=== PATIENT | male | born 2000 | race African-American/Black ===

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

== ENCOUNTER 2022-03-05 18:17 | Emergency (ER) | payer OTHER, SELFPAY ==
[2022-03-05 18:28] VITALS: BP 132/67; PULSE 84; RESP 16; TEMP 36.7; O2SAT 100
--- NOTE | 2022-03-05 18:31 | ED.WOUNDLAC ---
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 Patient reports that he has not been able to get bleeding stopped he states and has applied pressure dressing.Patient has 1cm linear laceration puncture type of wound to left lower leg where he cut it with tip of wire bound box machine helper knife. Patient reports that his tetanus shot is up to date. Onset (ago): hour(s) (within past 2 hours.) Location: other (left lower leg) Patient tetanus UTD: Yes Treatments prior to arrival: bandage (pressure) Related Data Allergies Allergy/AdvReac Type Severity Reaction Status Date / Time No Known Allergies Allergy Mild Verified 03/05/22 18:19 Review of Systems Review of Systems: CONSTITUTIONAL: Denies fever, chills, or sweats. EYES: Denies visual changes, redness, or discharge. ENT: Denies rhinorrhea, congestion, sore throat, or otalgia. CARDIOVASCULAR: Denies chest pain, palpitations, or edema. RESPIRATORY: Denies cough or dyspnea. GASTROINTESTINAL: Denies abdominal pain, nausea, vomiting, or diarrhea. GENITOURINARY: Denies dysuria or hematuria. SKIN: Denies rash or itching.laceration to left lower leg with active bleeding noted. MUSCULOSKELETAL: Denies back pain, joint pain, or myalgia. NEUROLOGIC: Denies headache, numbness, or weakness. PSYCHIATRIC: Denies anxiety or depression. All systems reviewed & are unremarkable except as noted in HPI and below PMFSH Past Medical History Medical History (Updated 03/06/22 @ 00:00 by Background Daemericka) Foot fracture, right Strep pharyngitis Surgical History Surgical History (Updated 04/14/20 @ 09:07 by Cassidy Lisa NP) No history of previous surgery Social History Social History (Updated 03/06/22 @ 11:17 by Cassidy Lisa NP) Smoking status: Never smoker Alcohol intake: never Substance use type: marijuana Living arrangements: with family Gender identity (if verbalized by the patient): Male Comments At time of signature, agree with nursing past medical, surgical, social and family history. There is no relevant family history pertinent to the presenting complaint Exam Narrative: GENERAL: Well-appearing, well-nourished, and in no acute distress. HEAD: Normocephalic, atraumatic. EYES: PERRLA an of ad EOMI. ENT: Nares clear, no rhinorrhea or epistaxis. Mucous membranes moist.TM's normal with good light reflex, throat pink with no tonsil swelling. NECK: Supple.no lymphadenopathy CHEST: Clear to auscultation. No respiratory distress.SAO2 100% on room air HEART: Regular rate and rhythm. No murmur heard. Normal peripheral pulses. ABDOMEN: Soft, nontender, nondistended, normal active bowel sounds. EXTREMITIES: Normal range of motion. No edema. SKIN: Warm, dry, no rash.1cm laceration type puncture wound which occurred when patient was using a wire bound box machine helper to cut a tie off of bed at work today, active bleeding on arrival from wound which was stopped after stapling and application of pressure dressing, see procedure note. NEURO: No focal deficits. Alert and oriented x3. Course Course Level of Care: Express Care Visit Vital Signs Vital signs: Vital Signs Temperature 36.7 C 03/05/22 18:28 Pulse Rate 84 03/05/22 18:28 Respiratory Rate 16 03/05/22 18:28 Blood Pressure 132/67 03/05/22 18:28 Pulse Oximetry 100 03/05/22 18:28 Oxygen Delivery Room Air 03/05/22 18:28 Temperature 36.7 C 03/05/22 18:28 Pulse Rate 84 03/05/22 18:28 Respiratory Rate 16 03/05/22 18:28 Blood Pressure 132/67 03/05/22 18:28 Pulse Oximetry 100 03/05/22 18:28 Oxygen Delivery Room
== END 2022-03-05 18:58 | disposition home or self-care (01) ==
PROVIDERS: Emergency Provider Registered Nurse
DX: S81.812A Laceration without foreign body, left lower leg, initial encounter (principal); W26.8XXA Contact with other sharp object(s), not elsewhere classified, initial encounter
CPT/HCPCS: 12001; 99213; G0463

== ENCOUNTER 2022-07-09 15:13 | Emergency (ER) | payer OTHER, SELFPAY ==
[2022-07-09 15:45] VITALS: BP 124/62; PULSE 81; RESP 18; TEMP 37.4; O2SAT 100
--- NOTE | 2022-07-09 16:04 | ED.GENADULT ---
HPI - General Adult General Chief complaint: Wound/Laceration Stated complaint: Removal Keily Source: patient Mode of arrival: ambulatory Limitations: no limitations History of Present Illness HPI narrative: Patient presents requesting staple removal from the left lower leg. 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 His tetanus was up-to-date at that time. Three keily were placed. Patient tolerated well. He was discharged with Keflex. Denies any fever, chills, nausea, vomiting, purulence from the affected area. Denies any significant pain. No additional complaints or concerns. Related Data Home Medications Medication Instructions Recorded Confirmed No Home Medications 07/09/22 07/09/22 Allergies Allergy/AdvReac Type Severity Reaction Status Date / Time No Known Allergies Allergy Mild Verified 07/09/22 15:22 Review of Systems Review of Systems: CONSTITUTIONAL: Denies fever, chills, or sweats. EYES: Denies visual changes, redness, or discharge. ENT: Denies rhinorrhea, congestion, sore throat, or otalgia. CARDIOVASCULAR: Denies chest pain, palpitations, or edema. RESPIRATORY: Denies cough or dyspnea. GASTROINTESTINAL: Denies abdominal pain, nausea, vomiting, or diarrhea. GENITOURINARY: Denies dysuria or hematuria. SKIN: Reports healed laceration to left lower leg. Denies rash or itching. MUSCULOSKELETAL: Denies back pain, joint pain, or myalgia. NEUROLOGIC: Denies headache, numbness, dizziness, or weakness. PSYCHIATRIC: Denies anxiety or depression. [facility] Past Medical History Medical History Foot fracture, right Strep pharyngitis Surgical History Surgical History No history of previous surgery Family History Family History (Updated 07/09/22 @ 16:07 by CORKY Miller, GRACE) Mother Family history non-contributory Social History Social History Smoking status: Never smoker Alcohol intake: never Substance use type: marijuana Gender identity (if verbalized by the patient): Male Spiritual care concerns: No Exam Narrative: GENERAL: Well-appearing, well-nourished, and in no acute distress. HEAD: Normocephalic, atraumatic. EYES: PERRLA and EOMI. ENT: Nares clear, no rhinorrhea or epistaxis. Mucous membranes moist. Oropharynx without tonsillar hypertrophy exudate or other lesions. Bilateral TMs pearly hinson nonbulging NECK: Supple. No adenopathy or masses. No carotid bruits or JVD CHEST: Clear to auscultation. No respiratory distress. No wheezes rales or rhonchi HEART: Regular rate and rhythm. No murmur heard. Normal peripheral pulses. ABDOMEN: Soft, nontender, nondistended, normal active bowel sounds. EXTREMITIES: Normal range of motion. No edema. SKIN: There is approximately 1.5 cm hyperpigmented scar to the anterior aspect of the left lower leg with three keily intact NEURO: No focal deficits. Alert and oriented x3. PSYCH: Normal mood and affect. Course Course Level of Care: Express Care Visit Vital Signs Vital signs: Vital Signs Temperature 37.4 C 07/09/22 15:45 Pulse Rate 81 07/09/22 15:45 Respiratory Rate 18 07/09/22 15:45 Blood Pressure 124/62 07/09/22 15:45 Pulse Oximetry 100 07/09/22 15:45 Oxygen Delivery Room Air 07/09/22 15:45 Temperature 37.4 C 07/09/22 15:45 Pulse Rate 81 07/09/22 15:45 Respiratory Rate 18 07/09/22 15:45 Blood Pressure 124/62 07/09/22 15:45 Pulse Oximetry 100 07/09/22 15:45 Oxygen Delivery Room Air 07/09/22 15:45 Procedures Other Procedure Procedure 1: Other Procedure: After obtaining informed consent, 3 keily were removed from the anterior aspect of the left lower leg. No complication. Pt tolerated well. Me
== END 2022-07-09 16:15 | disposition home or self-care (01) ==
PROVIDERS: Emergency Provider Nurse Practitioner
DX: S81.812D Laceration without foreign body, left lower leg, subsequent encounter (principal); W26.8XXD Contact with other sharp object(s), not elsewhere classified, subsequent encounter
CPT/HCPCS: 99211; G0463